=== PATIENT | male | born 1940 | race Caucasian/White ===

== ENCOUNTER 2023-08-21 20:11 | Inpatient (IN) | payer OTHER ==
[~2023-08-21] VITALS: Ht 175.3 cm; Wt 65.8 kg
[2023-08-21 21:02] LABS: BASOPHILS # (AUTO) 0.1 K/UL (0.0-0.2); BASOPHILS % (AUTO) 0.6 % (0.0-2.0); HEMATOCRIT 34.7 % (36.7-47.1); LYMPHOCYTES % (AUTO) 6.1 % (20.5-51.5); MEAN CORPUSCULAR HEMOGLOBIN 30.8 uug (23.8-33.4); MEAN CORPUSCULAR HGB CONC 32 g/dL (32.5-36.3); MONOCYTES # (AUTO) 0.8 K/uL (0.1-1.30); MONOCYTES % (AUTO) 4.5 % (0.0-11.0); NEUTROPHILS # (AUTO) 15.1 K/uL (1.8-8.9); NEUTROPHILS % (AUTO) 88.8 % (38.5-71.5); PLATELET COUNT (AUTO) 321 K/uL (152-348); RED BLOOD CELL COUNT(AUTO) 3.58 MIL/uL (4.06-5.63); RED CELL DISTRIBUTION WIDTH 16.9 % (12.1-16.2)
[2023-08-21 21:08] LABS: DIFFERENTIAL COMMENT 1
[2023-08-21 21:13] LABS: CALCIUM 9.3 mg/dL (8.5-10.1); CARBON DIOXIDE 23 mmol/L (21-32); CHLORIDE 112 mmol/L (98-107); CREATININE 2.1 mg/dL (0.6-1.3); GLUCOSE 146 mg/dL (74-106); POTASSIUM 4.1 mmol/L (3.5-5.1); SODIUM SERUM 149 mmol/L (136-145); UREA NITROGEN, BLOOD 48 mg/dL (7-18)
[2023-08-21 21:17] LABS: AMMONIA < 10 umol/L (11-32); ETHANOL < 3 MG/DL (0-10)
[2023-08-21] MEDS: IV NORMAL SALINE 500 ML BAG IV ONE (21:18)
[2023-08-21 21:21] LABS: ALANINE AMINOTRANSFERASE 18 U/L (16-63); ALKALINE PHOSPHATASE 613 U/L (50-136); ASPARTATE AMINOTRANSFERASE 20 U/L (15-37); BILIRUBIN,DIRECT 0.2 mg/dL (0.0-0.2); BILIRUBIN,TOTAL 0.7 mg/dL (0.2-1.0); TOTAL PROTEIN, SERUM 7.1 g/dL (6.4-8.2)
[2023-08-21 21:23] LABS: LACTIC ACID 3.3 mmol/L (0.4-2.0)
[2023-08-21 21:26] LABS: THYROID STIMULATING HORMONE 1.034 mIU/mL (0.358-3.740)
[2023-08-21] MEDS ORDERED: KETAMINE HCL 500 MG/5 ML VIAL ONE (21:33)
[2023-08-21 21:35] LABS: *BILIRUBIN,URIN NEGATIVE (NEGATIVE); *BLOOD, URINE NEGATIVE (NEGATIVE); *CLARITY,URINE CLOUDY (CLEAR); *COLOR,URINE YELLOW (YELLOW); *KETONES,URINE NEGATIVE (NEGATIVE); *PROTEIN,URINE TRACE (NEGATIVE); *UROBILINOGEN,URINE 0.2 E.U./dl (NORMAL); LEUKOCYTE ESTERASE ,URINE NEGATIVE (NEGATIVE); NITRITE, URINE NEGATIVE (NEGATIVE); PH,URINE 5.5 (5.0-8.0); UGLUCOSE NEGATIVE (NEGATIVE)
[2023-08-21 21:41] LABS: RBC,URINE 0-3 /HPF (0-3); WBC,URINE 0-3 /HPF (0-3)
[2023-08-21] MEDS: KETAMINE HCL 500 MG/10 ML INJ IV ONE (21:44)
[2023-08-21] MEDS: ONDANSETRON 4 MG/2 ML VIAL IV ONE (21:44)
[2023-08-21] MEDS ORDERED: PIPERACILLIN/TAZOBACTAM/D5W 50 ML IV ONE (21:48)
[2023-08-21 21:49] LABS: *AMPHETAMINE, URINE NEGATIVE (NEGATIVE); *BARBITURATE, URINE NEGATIVE (NEGATIVE); *BENZODIAZEPINE, URINE NEGATIVE (NEGATIVE); *CANNABINOID, URINE NEGATIVE (NEGATIVE); *COCCAINE, URINE NEGATIVE (NEGATIVE); *OPIATE, URINE POSITIVE (NEGATIVE); *PHENCYCLIDINE SCREEN,URINE NEGATIVE (NEGATIVE)
[2023-08-21] MEDS ORDERED: LIDOCAINE 2%-EPI 1:100,000 20 ML VIAL ONE (21:49)
[2023-08-21 21:51] LABS: FENTANYL, URINE NEGATIVE (NEGATIVE)
[2023-08-21] MEDS: PIPERACILLIN SODIUM/TAZOBACTAM 3.375 G in IV DEXTROSE 5% 50 ML IV ONE (21:55)
[2023-08-22] VITALS (8 sets, daily range): BP systolic 91–150; BP diastolic 58–79; TEMP 97.7–98.2; O2SAT 94
[2023-08-22] MEDS: KETAMINE HCL 100 MG in IV NORMAL SALINE 100 ML IV PRN (00:03)
[2023-08-22] MEDS ORDERED: REMEDY ESSENTIAL ZINC PASTE 113 GM TP PRN (01:00)
[2023-08-22] MEDS ORDERED: ONDANSETRON 4 MG/2 ML VIAL IV PRN (01:00)
[2023-08-22] MEDS ORDERED: ACETAMINOPHEN 325 MG TABLET PO PRN (01:00)
[2023-08-22] MEDS ORDERED: MAGNESIUM HYDROXIDE 30 ML LIQUID UDC PO PRN (01:00)
[2023-08-22] MEDS: LIDOCAINE 2%-EPI 1:100,000 20 ML VIAL IJ ONE (01:03)
[2023-08-22] MEDS ORDERED: PANTOPRAZOLE SODIUM 40 MG VIAL ONE (01:20)
[2023-08-22] MEDS: PANTOPRAZOLE SODIUM IV 80 MG in IV DEXTROSE 5% 100 ML IV ONE (01:28)
[2023-08-22] MEDS: PANTOPRAZOLE SODIUM IV 80 MG in IV DEXTROSE 5% 500 ML IV ONE (01:56)
[2023-08-22] MEDS: IV NS 1000 ML 1,000 ML IV PRN (03:05)
[2023-08-22 03:29] LABS: HEMOGLOBIN 9.5 g/dL (12.5-16.3)
[2023-08-22] MEDS ORDERED: METOCLOPRAMIDE HCL 10 MG/2 ML VIAL ONE (04:31)
[2023-08-22] MEDS ORDERED: VANCOMYCIN IV 200 ML ONE (04:31)
[2023-08-22] MEDS: METOCLOPRAMIDE HCL 10 MG/2 ML VIAL IV STA (04:33)
[2023-08-22] MEDS: VANCOMYCIN IV 1,000 MG in IV DEXTROSE 5% 250 ML IV ONE (04:33)
[2023-08-22] MEDS ORDERED: PIPERACILLIN SODIUM/TAZOBACTAM 3.375 G in IV DEXTROSE 5% 50 ML IV SCH (06:00)
[2023-08-22] MEDS ORDERED: PIPERACILLIN/TAZOBACTAM/D5W 50 ML IV ONE (06:02)
[2023-08-22] MEDS: PIPERACILLIN SODIUM/TAZOBACTAM 3.375 G in IV DEXTROSE 5% 50 ML IV ONE (06:02)
[2023-08-22] MEDS ORDERED: DIGO125T (06:20)
[2023-08-22] MEDS ORDERED: FOLI1TAB94 (06:20)
[2023-08-22] MEDS ORDERED: SENN-261 (06:20)
[2023-08-22] MEDS ORDERED: EZET10TA32 (06:20)
[2023-08-22] MEDS ORDERED: DOCU100C58 (06:20)
[2023-08-22] MEDS ORDERED: ALBU18HF2 IH (06:20)
[2023-08-22] MEDS ORDERED: TIOT4MIS3 IH (06:20)
[2023-08-22] MEDS ORDERED: SACU1TAB (06:20)
[2023-08-22] MEDS ORDERED: PANTOPRAZOLE SODIUM 40 MG VIAL IV SCH (09:00)
[2023-08-22] MEDS ORDERED: HEPARIN SODIUM,PORCINE/PF 500 UNIT/5 ML SYR MC SCH (09:00)
[2023-08-22] MEDS ORDERED: HEPARIN SODIUM,PORCINE 5,000 UNITS/ML VIAL SQ SCH (09:30)
[2023-08-22] MEDS ORDERED: PIPERACILLIN SODIUM/TAZOBACTAM 3.375 G in IV DEXTROSE 5% 100 ML IV SCH (14:00)
== END 2023-08-22 11:34 | DRG 871 ==
LOC: ER 20:13 → TRANSITION 08-22 00:26
PROVIDERS: ADMIT Student in an Organized Health Care Education/Training Program; ATTEND Student in an Organized Health Care Education/Training Program
PROC: 02HV33Z Insertion of Infusion Device into Superior Vena Cava, Percutaneous Approach (ICD-10-PCS; principal; 2023-08-22)
PROC: 0D9670Z Drainage of Stomach with Drainage Device, Via Natural or Artificial Opening (ICD-10-PCS; 2023-08-22)
DX: A41.9 Sepsis, unspecified organism (principal); G92.8 Other toxic encephalopathy; R65.21 Severe sepsis with septic shock; J69.0 Pneumonitis due to inhalation of food and vomit; N17.0 Acute kidney failure with tubular necrosis; C72.0 Malignant neoplasm of spinal cord; C79.51 Secondary malignant neoplasm of bone; E87.0 Hyperosmolality and hypernatremia; D68.59 Other primary thrombophilia; E44.0 Moderate protein-calorie malnutrition; E87.20 Acidosis, unspecified; Z59.01 Sheltered homelessness; C78.02 Secondary malignant neoplasm of left lung; C78.01 Secondary malignant neoplasm of right lung; I13.0 Hypertensive heart and chronic kidney disease with heart failure and stage 1 through stage 4 chronic kidney disease, or unspecified chronic kidney disease; I67.82 Cerebral ischemia; Z66 Do not resuscitate; I48.0 Paroxysmal atrial fibrillation; Z95.810 Presence of automatic (implantable) cardiac defibrillator; M81.0 Age-related osteoporosis without current pathological fracture; Z79.01 Long term (current) use of anticoagulants; I25.2 Old myocardial infarction; K21.9 Gastro-esophageal reflux disease without esophagitis; J43.2 Centrilobular emphysema; F32.9 Major depressive disorder, single episode, unspecified; I25.5 Ischemic cardiomyopathy; M62.81 Muscle weakness (generalized); E86.0 Dehydration; R27.9 Unspecified lack of coordination; I44.7 Left bundle-branch block, unspecified; H70.91 Unspecified mastoiditis, right ear; H35.30 Unspecified macular degeneration; E78.5 Hyperlipidemia, unspecified; E11.22 Type 2 diabetes mellitus with diabetic chronic kidney disease; N18.9 Chronic kidney disease, unspecified; Z68.21 Body mass index [BMI] 21.0-21.9, adult; N40.0 Benign prostatic hyperplasia without lower urinary tract symptoms; I25.10 Atherosclerotic heart disease of native coronary artery without angina pectoris; D64.9 Anemia, unspecified; Z88.6 Allergy status to analgesic agent; I50.9 Heart failure, unspecified
CPT/HCPCS: 36415; 70450; 71045; 71250; 83605; 84443; 84484; 85018; 85025; 85730; 87040; 93005; C1758; C9113; G0378; G0480; J2405; J2543; J2765; J3370; J3490; J7040; J7050; J7060